=== PATIENT | female | born 1975 | race African-American/Black ===

== ENCOUNTER 2017-05-08 15:40 | Emergency (ER) | payer OTHER ==
[~2017-05-08] VITALS: Ht 167.6 cm; Wt 108.9 kg
[~2017-05-08 15:40] MED LIST: LISINOPRIL20 MG PO
--- OUTSIDE RECORDS SUMMARY | 2017-05-08 15:43 | XMS REPORT | Clinical Summary ---
Author Author [facility] Address Unknown Phone Unavailable Care Team Providers Care Accounting Coordinator Name Role Phone Anna Hughes MD PCP Allergies No Known Allergies Current Medications Prescription Sig. Disp. Refills Start End Date Status Date lisinopril Take 20 mg by mouth daily Active (PRINIVIL,ZESTRIL) 20 MG as needed. tablet icosapent ethyl (VASCEPA) Take 2 g by mouth 2 (two) Active 1 gram capsule times a day. WAL-FINATE 4 mg tablet TK 1 T PO TID 0 12/28/19 Active 17 ergocalciferol (VITAMIN Take 1 capsule (50,000 12 capsule 0 02/23/20 05/17/19 Active D2) 50,000 unit capsule Units total) by mouth 17 18 once a week for 84 days. ergocalciferol Take 1 capsule (50,000 12 capsule 0 02/25/20 (ERGOCALCIFEROL) 50,000 Units total) by mouth 16 17 unit capsule once a week for 84 days. Active Problems Not on file Encounters Date Type Specialty Care Team Description 02/22/2017 Orders Only Internal Medicine Anna Hughes MD 02/21/2017 Office Visit Internal Medicine Anna Hughes MD Encounter for preventative adult health care exam with abnormal findings (Primary Dx); Essential hypertension; Encounter for screening mammogram for malignant neoplasm of breast 12/27/2016 Telephone Internal Medicine Anne Jackman MA after 05/07/2016 Immunizations Name Dates Previously Given Next Due Influenza Trivalent 01/03/2016 Family History Medical History Relation Name Comments Hypertension Father Heart disease Maternal Grandfather Arthritis Maternal Grandmother Diabetes Maternal Grandmother Cataracts Mother Hypertension Mother Relation Name Status Comments Father Alive Maternal Grandfather Maternal Grandmother Mother Alive Social History Tobacco Use Types Packs/Day Years Used Date Never Smoker Smokeless Tobacco: Never Used Alcohol Use Drinks/Week oz/Week Comments No Sex Assigned at Date Recorded Not on file Last Filed Vital Signs Vital Sign Reading Time Taken Blood Pressure 125/84 02/21/2017 9:00 AM [employer] Pulse 67 02/21/2017 9:00 AM [employer]INE [employer] Temperature 36.9 C (98.4 F) 02/21/2017 9:00 AM [employer] MACHINE [employer]ER Respiratory Rate 16 02/21/2017 9:00 AM C[employer] MACHINE TENDER Oxygen Saturation 100% 02/21/2017 9:00 AM 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 Bacteria, UA Few None seen/Few Specimen Performing Laboratory [facility] Narrative Performed at:01 - [facility] [id number] Engineering Team Supervisor: Ced Carlson MD, Phone:[phone] * Vitamin D 25 hydroxy level (02/21/2017 9:34 AM) Component Value Ref Range Vitamin D, 25-hydroxy 20.5 (L) 30.0 - 100.0 ng/mL Comment: Vitamin D deficiency has been defined by the [place] [employer] and an Endocrine Society practice guideline as a level of serum 25-OH vitamin D less than 20 ng/mL (1,2). The Endocrine Society went on to further define vitamin D insufficiency as a level between 21 and 29 ng/mL (2). 1. IOM ([place] [employer]). 2010. Dietary reference intakes for calcium and D. [place]: The National Academies Press. 2. Lesia MF, Tori VALDEZ, Rolly SOLIS, et al. Evaluation, treatment, and prevention of vitamin D deficiency: an Endocrine Society clinical practice guideline. JCEM. 2010; 96(8):1911-30. Specimen Performing Laboratory Blood [facility] Narrative Performed at:[id number] Engineering Team Supervisor: Ced Carlson MD, Phone:[phone] * Urinalysis, automated with microscopy (02/21/2017 9:34 AM) Component Value Ref Range Specific gravity, urine 1.021 1.005 - 1.030 pH, urine 7.5 5.0 - 7.5 Color, UA Yellow Yellow Appearance Clear Clear WBC esterase, urine Negative Negative Protein, UA Negative Negative/Trace Glucose, urine Negative Negative Ketones, UA Negative Negative Occult blood, urine Negative Negative Bilirubin, UA Negative Negative Urobilinogen, UA 0.2 0.2 - 1.0 mg/dL Nitrite, UA Negative Negative Microscopic examination CommentComment: Microscopic follows if indicated. Microscopic examination See below:Comment: Microscopic was indicated and was performed. Specimen Performing Laboratory Urine [facility] Narrative Performed at:[id number] Engineering Team Supervisor: Ced Carlson MD, Phone:[phone] * CBC with platelet and differential (02/21/2017 9:34 AM) Component Value Ref Range WBC 3.4 3.4 - 10.8 x10E3/uL RBC 4.37 3.77 - 5.28 x10E6/uL HGB 12.0 11.1 - 15.9 g/dL Comment: Effective February 26, 2017 the reference interval for Hemoglobin MALES only will be changing to: Ma les 13-15 years: 12.6 - 17.7 Ma les >15 years: 13.0 - 17.7 HCT 35.9 34.0 - 46.6 % MCV 82 79 - 97 fL MCH 27.5 26.6 - 33.0 pg MCHC 33.4 31.5 - 35.7 g/dL RDW 14.1 12.3 - 15.4 % Platelet count 244 150 - 379 x10E3/uL Neutrophils 31 Not Estab. % Lymphocytes 58 Not Estab. % Monocytes 9 Not Estab. % Eosinophils 1 Not Estab. % Basophils 1 Not Estab. % Neutrophils, absolute 1.1 (L) 1.4 - 7.0 x10E3/uL Lymphocytes, absolute 2.0 0.7 - 3.1 x10E3/uL Monocytes, absolute 0.3 0.1 - 0.9 x10E3/uL Eosinophils, absolute 0.0 0.0 - 0.4 x10E3/uL Basophils, absolute 0.0 0.0 - 0.2 x10E3/uL Immature granulocytes 0 Not Estab. % Immature grans (abs) 0.0 0.0 - 0.1 x10E3/uL Specimen Performing Laboratory Blood [facility] Narrative Performed at:[address] [place], [place] [id number] Engineering Team Supervisor: Ced Carlson MD, Phone:[phone] * Thyroid stimulating hormone (02/21/2017 9:34 AM) Component Value Ref Range TSH 0.649 0.450 - 4.500 uIU/mL Specimen Performing Laboratory Blood [facility] Narrative Performed at:[address] [place], [place] [id number] Engineering Team Supervisor: Ced Carlson MD, Phone:[phone] * Hemoglobin A1c (02/21/2017 9:34 AM) Component Value Ref Range Hemoglobin A1C 5.4 4.8 - 5.6 % Comment: Pre-diabetes: 5.7 - 6.4 Diabetes: >6.4 Glycemic control for adults with diabetes: <7.0 Specimen Performing Laboratory Blood [facility] Narrative Performed at:[address] [place], [place] [id number] Engineering Team Supervisor: Ced Carlson MD, Phone:[phone] * Lipid panel (02/21/2017 9:34 AM) Component Value Ref Range Cholesterol 171 100 - 199 mg/dL Triglycerides 85 0 - 149 mg/dL HDL cholesterol 35 (L) >39 mg/dL VLDL cholesterol rajendra 17 5 - 40 mg/dL LDL cholesterol 119 (H) 0 - 99 mg/dL calculated Non-HDL cholesterol 136 (H) 0 - 129 mg/dL Specimen Performing Laboratory Blood [facility] Narrative Performed at:[address] [place], [place] [id number] Engineering Team Supervisor: Ced Carlson MD, Phone:[phone] * Comprehensive metabolic panel (02/21/2017 9:34 AM) Component Value Ref Range Glucose 79 65 - 99 mg/dL BUN, whole blood 6 6 - 24 mg/dL Creatinine 0.61 0.57 - 1.00 mg/dL EGFR Non-Afr. [place] 114 >59 mL/min/1.73 EGFR 131 >59 mL/min/1.73 BUN/creatinine ratio 10 9 - 23 Sodium 141 134 - 144 mmol/L Potassium 4.5 3.5 - 5.2 mmol/L Chloride 103 96 - 106 mmol/L CO2 24 18 - 29 mmol/L Calcium 8.6 (L) 8.7 - 10.2 mg/dL Protein 6.4 6.0 - 8.5 g/dL Albumin, S 4.0 3.5 - 5.5 g/dL Globulin, total 2.4 1.5 - 4.5 g/dL Albumin/globulin ratio 1.7 1.2 - 2.2 Total bilirubin 0.2 0.0 - 1.2 mg/dL Alkaline phosphatase 53 39 - 117 IU/L AST 11 0 - 40 IU/L ALT 15 0 - 32 IU/L Specimen Performing Laboratory Blood [facility] Narrative Performed at:01 - [facility] [id number] Engineering Team Supervisor: Ced Carlson MD, Phone:[phone] after 05/07/2016 Insurance Payer Benefit Subscriber ID Type Phone Address Plan / Group [facility] xxxxxxxxx HMO/PPO THCARE CHOICE/CHO ICE +
[2017-05-08] MEDS ORDERED: ONDANSETRON HCL INJ 2 MG/ML VIAL IV STA (16:06)
[2017-05-08] MEDS ORDERED: SODIUM CHLORIDE 0.9% 1000ML 1,000 ML IV STA (16:06)
[2017-05-08] MEDS ORDERED: MORPHINE SULFATE 4 MG/ML SYR IV STA (16:06)
[2017-05-08 16:31] LABS: BILIRUBIN,URINE NEGATIVE (NEGATIVE); CLARITY,URINE CLEAR (CLEAR); COLOR,URINE YELLOW (YELLOW); KETONES,URINE NEGATIVE (NEGATIVE); LEUKOCYTE ESTERASE ,URINE NEGATIVE (NEGATIVE); NITRITE,URINE NEGATIVE (NEGATIVE); PROTEIN,URINE DIPSTICK NEGATIVE (NEGATIVE); URINE UROBILINOGEN 0.2 mg/dL (0.2 - 1)
[2017-05-08 16:32] LABS: PREGNANCY TEST, URINE NEGATIVE (NEGATIVE)
[2017-05-08 16:49] LABS: EPITHELIAL CELLS,URINE MODERATE /LPF
[2017-05-08 17:07] LABS: BASOPHILS % 0.2 % (0.0-1.0); EOSINOPHILS % 0.4 % (0.0-6.0); HEMATOCRIT 39.5 % (34.2-44.1); HEMOGLOBIN 12.9 g/dL (12.0-16.0); LYMPHOCYTES # (AUTO) 2.3 (1.0-3.2); LYMPHOCYTES % 28.4 % (18.0-39.1); MEAN CORPUSCULAR HEMOGLOBIN 27.1 pg (28-32); MEAN CORPUSCULAR HGB CONC 32.7 g/dL (31-35); MONOCYTES # (AUTO) 0.5 (0.2-0.8); MONOCYTES % 5.6 % (4.4-11.3); NEUTROPHILS # (AUTO) 5.3 (2.1-6.9); NEUTROPHILS % 65.3 % (38.7-80.0); PLATELET COUNT 287 x10e3/uL (140-360); RED BLOOD COUNT 4.76 x10e6/uL (3.6-5.1); RED CELL DISTRIBUTION WIDTH 13.7 % (11.7-14.4)
[2017-05-08 17:24] LABS: ALANINE AMINOTRANSFERASE 20 IU/L (0-55); ALBUMIN 3.9 g/dL (3.5-5.0); ALKALINE PHOSPHATASE 54 IU/L (40-150); ANION GAP 12.1 mmol/L (8-16); BLOOD UREA NITROGEN 14 mg/dL (7-26); BUN/CREATININE RATIO 18 (6-25); CALCIUM 9.6 mg/dL (8.4-10.2); CARBON DIOXIDE 24 mmol/L (22-29); CHLORIDE 105 mmol/L (98-107); CREATININE, SERUM 0.76 mg/dL (0.57-1.11); EST GLOMERULAR FILTRATION RATE > 60 ML/MIN (60-); GLUCOSE 78 mg/dL (74-118); LIPASE 9 U/L (8-78); POTASSIUM 4.1 mmol/L (3.5-5.1); SODIUM 137 mmol/L (136-145)
[2017-05-08] MEDS ORDERED: MORPHINE SULFATE 2 MG/ML SYR ONE (17:36)
--- NOTE | 2017-05-08 18:56 | Diagnostic Imaging Report ---
PROCEDURE: CT ABDOMEN AND PELVIS WITH CONTRAST TECHNIQUE: The abdomen and pelvis were scanned utilizing a multidetector helical scanner from the diaphragm to the lesser trochanter after the IV administration of 100 cc of Isovue 370 and the oral administration of water. Coronal and sagittal multiplanar reformations were obtained. COMPARISON: None. INDICATIONS: RULE OUT APPY, RLQ PAIN TODAY FINDINGS: LOWER THORAX: Unremarkable HEPATOBILIARY: No focal hepatic lesions. No biliary ductal dilatation. Gallbladder is unremarkable. SPLEEN: No splenomegaly. PANCREAS: No focal masses or ductal dilatation. ADRENALS: No adrenal nodules. KIDNEYS/URETERS: No hydronephrosis, stones, or solid mass lesions. PELVIC ORGANS/BLADDER: The bladder is unremarkable. Uterus is unremarkable. IUD in place in satisfactory location. Right ovarian 3.4 x 3.4 x 2.7 and left ovarian 2.9 x 2.6 x 2.7 cm fluid density structures likely representing follicular cysts (series 2, image 62 and 67). PERITONEUM / RETROPERITONEUM: No free air or fluid. LYMPH NODES: No lymphadenopathy. VESSELS: Unremarkable. GI TRACT: No bowel dilation or evidence of obstruction. Appendix is well identified and normal in caliber (series 2, images 39-43). Stomach is unremarkable. BONES AND SOFT TISSUES: No aggressive lytic lesions. Tiny fat containing umbilical hernia. IMPRESSION: 1. no acute abdominopelvic abnormalities. No CT evidence of appendicitis. 2. Bilateral ovarian simple fluid, lesions, likely representing follicular cysts. Klever Walton M.D. Dictated by: Klever Walton M.D. on 05/08/2017 at 18:56 Electronically approved by: Klever Walton M.D. on 05/08/2017 at 18:56
[2017-05-08] MEDS ORDERED: SODIUM CHLORIDE 0.9% 50ML 50 ML ONE (22:19)
[2017-05-08] MEDS ORDERED: IOPAMIDOL 370 MG/ML 200 ML INFUS..BTL INJ ONE (22:19)
== END 2017-05-08 19:35 | disposition home or self-care (01) ==
LOC: ER 15:40
DX: N83.02 Follicular cyst of left ovary (principal); R10.31 Right lower quadrant pain; I10 Essential (primary) hypertension; N83.01 Follicular cyst of right ovary
CPT/HCPCS: 36415; 74177; 80053; 81001; 81025; 83690; 85025; 87086; 99284; J2270; J2405; J7030; Q9967